=== PATIENT | male | born 1940 | race Caucasian/White ===

== ENCOUNTER 2025-05-14 07:07 | Outpatient (CLI) | payer MEDICARE, OTHER, SELFPAY ==
--- NOTE | ~2025-05-14 | PE_ITS ---
EXAMINATION: PET_PETPSMAST_PT DATE: 05/14/2025 09:57 INDICATION: Prostate cancer TECHNIQUE: 5.307 mCi of Illucix Ga-[id number]) was administered i.v. Low dose computed tomography (CT) images were acquired from the base of the brain to the base of the brain to the proximal thighs for attenuation correction and anatomic localization. Positron emission tomography (PET) images were acquired in the same distribution beginning 79 minutes after injection. Images including fused PET/CT images were reconstructed in axial, coronal, and sagittal planes. Automated exposure control technique was employed. The dose-length product was 996.20mGy-cm. COMPARISON: None FINDINGS: Head/neck: Typical pattern of symmetric physiologic increased activity in the lacrimal, parotid and submandibular glands as well as along the mucosa of the nasal and oral cavities, pharynx and hypopharynx. The appearance is however distorted by significant change in position of the patient's head during the PET scanning. 7 mm rim calcified likely benign left thyroid nodule.. No pathologically enlarged cervical lymphadenopathy or suspicious foci of increased uptake in the visualized head or neck. Chest: No pulmonary nodules or pulmonary infiltrates. No pleural effusion. Heart size normal. Atherosclerotic coronary artery calcifications and change of prior coronary artery bypass grafting and coronary artery bypass grafting. Thoracic aorta is normal in caliber. No pathologically enlarged or PSMA avid thoracic lymphadenopathy. Abdomen/pelvis/proximal thighs: Physiologic renal accumulation and excretion of activity in the kidneys, bladder and along portions of ureters. 1 cm diameter exophytic lesion of greater than simple fluid attenuation at the lower pole the right kidney. Prostatomegaly measuring 4.3 x 3.4 cm. There is an approximately 2 cm region of prominent increased uptake at the left peripheral zone of the prostate with maximal SUV of 24.6 consistent with primary prostate cancer. Normal degree and slightly heterogenous pattern of increased uptake throughout the liver and spleen without radiologic correlate or dominant PSMA avid lesion. The gallbladder and bilateral adrenal glands are normal. Multiple tiny dystrophic pancreatic branch normal calculations consistent with sequela of chronic pancreatitis. Moderate uptake scattered throughout the bowels with typical duodenal and proximal jejunal predominance and without radiologic correlate, also likely physiologic. There is moderate colonic diverticulosis with a sigmoid predominance and without adjacent inflammatory change to suggest diverticulitis. Normal appendix. No other abnormal foci of increased uptake or pathologically enlarged lymphadenopathy in the abdomen, pelvis or proximal thighs. Musculoskeletal: There are extensive bridging osteophytes at multiple levels throughout the spine consistent with diffuse idiopathic skeletal hyperostosis (DISH). Moderate left and severe right glenohumeral osteoarthritis No suspicious lytic, blastic or abnormally PSMA avid bone lesions. IMPRESSION: 1. Partially 2 cm region of marked increased activity at the left peripheral zone of the enlarged prostate consistent with primary prostate cancer. No evident metastatic disease. 2. Indeterminate 1 cm exophytic lesion at the lower pole the right kidney which could represent a proteinaceous/hemorrhagic cyst or solid renal cell carcinoma. Recommend further evaluation with pre and postcontrast MRI or CT. Reviewed, dictated and finalized at location A. [employer] IMPRESSION: 1. Partially 2 cm region of marked increased activity at the left peripheral zo ne of the enlarged prostate consistent with primary prostate cancer. No evident metastatic disease. 2. Indeterminate 1 cm exophytic lesion at the lower pole the right kidney which could represent a proteinaceous/hemorrhagic cyst or solid renal cell carcinoma . Recommend further evaluation with pre and postcontrast MRI or CT.
== END 2025-05-14 07:08 | disposition home or self-care (01) ==
LOC: ANHIMG 07:17
PROVIDERS: PCP Internal Medicine; Visit Provider Urology
DX: C61 Malignant neoplasm of prostate (principal)
CPT/HCPCS: 78815; A9596